=== PATIENT | male | born 1990 | race American Indian/Alaskan Native ===

== ENCOUNTER 2017-12-19 09:33 | Emergency (ER) | payer SELFPAY ==
[2017-12-19 09:43] VITALS: BP 150/97
--- NOTE | 2017-12-19 10:43 | Emergency Department Report ---
Chief Complaint: Urogenital-Male Stated Complaint: DISCHARGE Time Seen by Provider: 12/19/17 10:35 - HPI History of Present Illness: This is a 27-year-old -[place] male who presents with white penile discharge for 3 days. Patient admits to recent exposure to sexually transmitted diseases. He denies frequency, urgency, dysuria, pelvic or low back pain, testicular swelling or pain. Patient states he does not have insurance and his friend told him he can come to the emergency room to be treated for free. - ROS Review of Systems: complaining of penile discharge. This denies dysuria, frequency, urgency, testicular pain or swelling, or pelvic or low back pain. - Exam Vital Signs: Vital Signs 12/19/17 09:41 Temperature 97.8 F Pulse Rate 63 Respiratory 18 Rate Blood Pressure 150/97 O2 Sat by Pulse 100 Oximetry Physical Exam: Negative abdominal tenderness, CVA tenderness MSE screening note: Focused history and physical exam performed. Due to findings the following was ordered: Patient given handout to alternative treatment options. Patient also injected to follow-up with a [facility] or the health department for treatment. ED Disposition for MSE Condition: Stable
== END 2017-12-19 11:51 | disposition left against medical advice (07) ==
LOC: ED 09:33
DX: R36.9 Urethral discharge, unspecified (principal)
CPT/HCPCS: 99281

== ENCOUNTER 2017-12-22 16:49 | Emergency (ER) | payer SELFPAY ==
[2017-12-22 17:42] VITALS: BP 127/74
[2017-12-22 18:20] LABS: Bilirubin,Urine NEG (Negative); Blood,Urine MOD (Negative); Color,Urine Straw (Yellow); Protein,Urine <15 mg/dL mg/dL (Negative); Urobilinogen,Urine < 2.0 mg/dL (<2.0)
[2017-12-22] MEDS ORDERED: ZITHROMAX PO ONE (22:36)
[2017-12-22] MEDS ORDERED: ROCEPHIN IM ONE (22:36)
[2017-12-22] MEDS ORDERED: XYLOCAINE 1% MPF 5 mL INFILTRATI ONE (22:36)
--- NOTE | 2017-12-22 22:55 | Emergency Department Report ---
ED Male HPI - General Chief complaint: Urogenital-Male Stated complaint: CANT URINATE Time Seen by Provider: 12/22/17 22:35 Source: patient Mode of arrival: Ambulatory Limitations: No Limitations - History of Present Illness Initial comments: Patient is a 27-year-old -[place]ian male who presents for a STD yellow purulent penile discharge no fever no chills noticeable. Lymph nodes systems include dysuria frequency urgency no hematuria symptoms exacerbated by urinating and no sores open lesions or rashes MD Complaint: penile discharge, dysuria Onset/Timin -: days(s) Location: penis Radiation: none Severity: moderate Severity scale (0 -10): 4 Quality: burning Consistency: intermittent Improves with: none Worsens with: urination new sexual partner discharge, dysuria. denies: swelling, mass, rash, urinary retention, blood in urine, fever, nausea/vomiting, incontinence - Related Data Sexually active: Yes Previous Rx's Medication Instructions Recorded Last Taken Type Ciprofloxacin HCl [Cipro] 500 mg PO BID #14 tablet 12/22/17 Unknown Rx Doxycycline [Vibramycin CAP] 100 mg PO Q12HR #20 capsule 12/22/17 Unknown Rx Allergies Allergy/AdvReac Type Severity Reaction Status Date / Time No Known Allergies Allergy Verified 12/19/17 09:41 ED Review of Systems ROS: Stated complaint: CANT URINATE Other details as noted in HPI Constitutional: denies: chills, fever Eyes: denies: eye pain, eye discharge, vision change ENT: denies: ear pain, throat pain Respiratory: denies: cough, shortness of breath, wheezing Cardiovascular: denies: chest pain, palpitations Endocrine: no symptoms reported Gastrointestinal: denies: abdominal pain, nausea, diarrhea Genitourinary: urgency, dysuria, frequency, discharge. denies: hematuria, testicular pain Musculoskeletal: denies: back pain, joint swelling, arthralgia Skin: denies: rash, lesions Neurological: denies: headache, weakness, paresthesias Psychiatric: denies: anxiety, depression Hematological/Lymphatic: denies: easy bleeding, easy bruising ED Past Medical Hx - Past Medical History Previous Medical History?: No - Surgical History Past Surgical History?: No - Social History Smoking Status: Never Smoker Substance Use Type: Alcohol - Medications Home Medications: Home Medications Medication Instructions Recorded Confirmed Last Taken Type Ciprofloxacin HCl [Cipro] 500 mg PO BID #14 tablet 12/22/17 Unknown Rx Doxycycline [Vibramycin CAP] 100 mg PO Q12HR #20 capsule 12/22/17 Unknown Rx ED Physical Exam - General Limitations: No Limitations General appearance: alert, in no apparent distress - Head Head exam: Present: atraumatic, normocephalic - Eye Eye exam: Present: normal appearance - ENT ENT exam: Present: mucous membranes moist - Neck Neck exam: Present: normal inspection - Respiratory Respiratory exam: Present: normal lung sounds bilaterally. Absent: respiratory distress - Cardiovascular Cardiovascular Exam: Present: regular rate, normal rhythm. Absent: systolic murmur, diastolic murmur, rubs, gallop - GI/Abdominal GI/Abdominal exam: Present: soft, normal bowel sounds - Rectal Rectal exam: Present: deferred - exam: Present: normal inspection, urethral discharge (yellow green purulent) , circumcision. Absent: testicular tenderness, scrotal swelling, vertical testicular lie External exam: Present: normal external exam. Absent: erythema, swelling, lesions, lacerations, ecchymosis, bleeding - Extremities Exam Extremities exam: Present: normal inspection - Back Exam Back exam: Present: normal inspection - Neurological Exam Neurological exam: Present: alert, oriented X3 - Psychiatric Psychiatric exam: Present: normal affect, normal mood - Skin Skin exam: Present: warm, dry, intact, normal color. Absent: rash ED Course Vital Signs 12/22/17 17:39 Temperature 98.5 F Pulse Rate 76 Respiratory 16 Rate Blood Pressure 127/74 O2 Sat by Pulse 99 Oximetry ED Medical Decision Making - Lab Data Laboratory Tests 12/22/17 17:54 Urine Color Straw Urine Turbidity Clear Urine pH 7.0 Ur Specific [place] 1.001 L Urine Protein <15 mg/dl Urine Glucose (UA) Neg Urine Ketones Neg Urine Blood Mod Urine Nitrite Neg Urine Bilirubin Neg Urine Urobilinogen < 2.0 Ur Leukocyte Esterase Lg Urine WBC (Auto) 39.0 H Urine RBC (Auto) 1.0 U Epithel Cells (Auto) < 1.0 - Medical Decision Making Patient treated for STD and UTI will follow with PCP in 2-3 days follow with health department for HIV and HSV screening patient verbalized understanding and agreement with same Critical care attestation.: If time is entered above; I have spent that time in minutes in the direct care of this critically ill patient, excluding procedure time. ED Disposition Clinical Impression: STD (sexually transmitted disease) UTI (urinary tract infection) Qualifiers: Urinary tract infection type: acute cystitis Hematuria presence: without hematuria Qualified Code(s): N30.00 - Acute cystitis without hematuria Disposition: TO HOME OR SELFCARE Is pt being admited?: No Does the pt Need Aspirin: No Condition: Good Instructions: Sexually Transmitted Diseases (ED), Urinary Tract Infection in Men (ED) Additional Instructions: follow up with health department for hiv and hsv screening Prescriptions: Ciprofloxacin HCl [Cipro] 500 mg PO BID #14 tablet Doxycycline [Vibramycin CAP] 100 mg PO Q12HR #20 capsule Referrals: [facility] [Outside] - 3-5 Days Forms: Work/School Release Form(ED) Time of Disposition: 23:01
== END 2017-12-22 23:25 | disposition home or self-care (01) ==
LOC: ED 16:49
DX: N30.00 Acute cystitis without hematuria (principal); A64 Unspecified sexually transmitted disease
CPT/HCPCS: 81001; 96372; 99283; J0696

== ENCOUNTER 2018-06-18 12:10 | Emergency (ER) | payer SELFPAY ==
--- NOTE | 2018-06-18 12:41 | Emergency Department Report ---
Blank Doc - Documentation Documentation: This is a 27-year-old male that presents with left index finger pain. Stated had a splinter that he removed but still believes some is left. Denies any other complaints. UTD with tetanus as of 2018. This initial assessment diagnostic orders/clinical plan/treatment(s) is/are subject to change based on patient's health status, clinical progression and re- assessment by fellow clinical providers in the ED. Further treatment and workup at subsequent clinical providers discretion. Patient/guardians urged not to elope from ED s their condition may be serious if not clinically assessed and managed. Initial orders include: 1-Patient sent to [facility] for further evaluation and treatment 2- xray to r/o foreign body
[2018-06-18 12:42] VITALS: BP 118/60
--- NOTE | 2018-06-18 14:17 | Emergency Department Report ---
- General Chief Complaint: Skin/Abscess/Foreign Body Stated Complaint: LACERATION INDEX FINGER Time Seen by Provider: 06/18/18 12:39 Source: patient Mode of arrival: Ambulatory Limitations: No Limitations - History of Present Illness Initial Comments: This is a 27-year-old male nontoxic, well nourished in appearance, no acute signs of distress presents to the ED with c/o of left next finger palpation. Patient stated that last week a splinter has been removed and endorses that he has a small abrasion that is painful. She denies any swelling, fever, chills, nausea, vomiting, chest pain instructed to bear. Denies any other complaints. Denies any allergies. Is up-to-date with tetanus. -: week(s) (1) Extremity Location: Left: Hand Patient Tetanus UTD: Yes Context: accidental Associated Symptoms: pain. denies: loss of feeling/numbness, suspect foreign body present, unable to move injured part, weakness followed by dizziness, nausea/vomiting, fever - Related Data Previous Rx's Medication Instructions Recorded Last Taken Type Ciprofloxacin HCl [Cipro] 500 mg PO BID #14 tablet 12/22/17 Unknown Rx Doxycycline [Vibramycin CAP] 100 mg PO Q12HR #20 capsule 12/22/17 Unknown Rx Acetaminophen/Codeine [Tylenol 1 tab PO Q6H PRN #12 tab 06/18/18 Unknown Rx /Codeine # 3 tab] Ibuprofen [Motrin] 600 mg PO Q8H PRN #20 tablet 06/18/18 Unknown Rx Sulfamethoxazole/Trimethoprim 1 each PO BID #14 tablet 06/18/18 Unknown Rx [Bactrim DS TAB] Allergies Allergy/AdvReac Type Severity Reaction Status Date / Time No Known Allergies Allergy Verified 12/19/17 09:41 ED Review of Systems ROS: Stated complaint: LACERATION INDEX FINGER Other details as noted in HPI Constitutional: denies: chills, fever Eyes: denies: eye pain, eye discharge, vision change ENT: denies: ear pain, throat pain Respiratory: denies: cough, shortness of breath, wheezing Cardiovascular: denies: chest pain, palpitations Endocrine: no symptoms reported Gastrointestinal: denies: abdominal pain, nausea, diarrhea Genitourinary: denies: urgency, dysuria Musculoskeletal: denies: back pain, joint swelling, arthralgia Skin: denies: rash, lesions Neurological: denies: headache, weakness, paresthesias Psychiatric: denies: anxiety, depression Hematological/Lymphatic: denies: easy bleeding, easy bruising ED Past Medical Hx - Past Medical History Previous Medical History?: No - Surgical History Past Surgical History?: No - Social History Smoking Status: Current Every Day Smoker Substance Use Type: Marijuana - Medications Home Medications: Home Medications Medication Instructions Recorded Confirmed Last Taken Type Ciprofloxacin HCl [Cipro] 500 mg PO BID #14 tablet 12/22/17 Unknown Rx Doxycycline [Vibramycin CAP] 100 mg PO Q12HR #20 capsule 12/22/17 Unknown Rx Acetaminophen/Codeine [Tylenol 1 tab PO Q6H PRN #12 tab 06/18/18 Unknown Rx /Codeine # 3 tab] Ibuprofen [Motrin] 600 mg PO Q8H PRN #20 tablet 06/18/18 Unknown Rx Sulfamethoxazole/Trimethoprim 1 each PO BID #14 tablet 06/18/18 Unknown Rx [Bactrim DS TAB] ED Physical Exam - General Limitations: No Limitations General appearance: alert, in no apparent distress - Head Head exam: Present: atraumatic, normocephalic - Extremities Exam Extremities exam: Present: normal inspection, full ROM, tenderness, normal capillary refill. Absent: joint swelling - Expanded Upper Extremity Exam Left Hand Wrist exam: Present: normal inspection, full ROM, tenderness, abrasion. Absent: swelling, laceration, ecchymosis, deformity, crepidus, dislocation, erythema, amputation, nail avulsion, subungual hematoma Vascular: Present: vascular compromise, normal capillary refill - Back Exam Back exam: Present: normal inspection, full ROM - Neurological Exam Neurological exam: Present: alert, oriented X3 - Psychiatric Psychiatric exam: Present: normal affect, normal mood - Skin Skin exam: Present: warm, dry, intact, normal color. Absent: rash ED Course Vital Signs 06/18/18 12:40 Temperature 97.9 F Pulse Rate 95 H Respiratory 18 Rate Blood Pressure 118/60 O2 Sat by Pulse 99 Oximetry - Reevaluation(s) Reevaluation #1: 06/18/18 14:19 Patient is speaking in full sentences with no signs of distress noted. ED Medical Decision Making - Medical Decision Making This is a 27-year-old male that presents with open wound. Patient is stable and was examined by me. There is no induration, fluctuance. No signs of abscess formation. Xray obatned and reviewed by Gisela Land with no facture or foreign body noted. I will discharge patient with Bactrim. Patient was referred to Follow-up with a primary care doctor in 3-5 days or if symptoms worsen and continue return to emergency room as soon as possible. At time of discharge, the patient does not seem toxic or ill in appearance. No acute signs of distress noted. Patient agrees to discharge treatment plan of care. No further questions noted by the patient. Critical care attestation.: If time is entered above; I have spent that time in minutes in the direct care o f this critically ill patient, excluding procedure time. ED Disposition Clinical Impression: Abrasion of left index finger Qualifiers: Encounter type: initial encounter Qualified Code(s): S60.411A - Abrasion of left index finger, initial encounter Disposition: TO HOME OR SELFCARE Is pt being admited?: No Does the pt Need Aspirin: No Condition: Stable Instructions: Abrasion (ED) Additional Instructions: Follow-up with a primary care doctor in 3-5 days or if symptoms worsen and continue return to emergency room as soon as possible. Prescriptions: Acetaminophen/Codeine [Tylenol /Codeine # 3 tab] 1 tab PO Q6H PRN #12 tab PRN Reason: Pain , Severe (7-10) Ibuprofen [Motrin] 600 mg PO Q8H PRN #20 tablet PRN Reason: Pain Sulfamethoxazole/Trimethoprim [Bactrim DS TAB] 1 each PO BID #14 tablet Referrals: RAJINDER LOMAX MD [Primary Care Provider] - 3-5 Days PRIMARY MD ALBA [Referring] - 3-5 Days JINA BELL MD [Staff Physician] - 3-5 Days [facility] [Outside] - 3-5 Days Forms: Work/School Release Form(ED)
--- NOTE | 2018-06-18 14:52 | XRay Report ---
LEFT FINGER RADIOGRAPHS INDICATION: Left finger pain with open wound. Evaluate for foreign body. COMPARISON: None similar at this institution. FINDINGS: An AP view of the left hand with oblique and lateral projections of the index finger demonstrate intact bony articulation and appearance. No definite radiopaque foreign body. Slight soft tissue swelling/irregularity along the index finger proximally questioned on the oblique view. CONCLUSION: No acute left hand bony abnormality with questionable index finger soft tissue injury, as described. Please correlate. Thank you for the opportunity to participate in this patient's care.
== END 2018-06-18 14:38 | disposition home or self-care (01) ==
LOC: ED 12:10
DX: S60.411A Abrasion of left index finger, initial encounter (principal); F17.200 Nicotine dependence, unspecified, uncomplicated; W45.8XXA Other foreign body or object entering through skin, initial encounter; Y93.89 Activity, other specified; Y92.69 Other specified industrial and construction area as the place of occurrence of the external cause; Y99.8 Other external cause status
CPT/HCPCS: 99283

== ENCOUNTER 2019-02-04 21:27 | Emergency (ER) | payer OTHER ==
[2019-02-04 22:40] VITALS: BP 132/67
--- NOTE | 2019-02-04 23:47 | Emergency Department Report ---
ED General Adult HPI - General Chief complaint: Extremity Injury, Upper Stated complaint: PAIN IN BACK AND SHOULDER Source: patient Mode of arrival: Ambulatory Limitations: No Limitations - History of Present Illness Initial comments: Patient is a 28-year-old -[place] male with no past medical history who presents to the ED with Gan of acute onset persistent severe nontraumatic right shoulder pain after heavy lifting at work for the last 1 month. Patient denies fall, traumatic injury, numbness and tingling overnight and right hands, neck pain, back pain, chest pain, shortness of breath, dizziness, headache, cough or change in vision. MD Complaint: right shoulder -: month(s) (1) Location: upper extremity (right shoulder) Radiation: non-radiation Severity scale (0 -10): 8 Quality: aching, sharp, constant Consistency: constant Improves with: none Worsens with: none Associated Symptoms: denies other symptoms. denies: confusion, chest pain, cough, diaphoresis, fever/chills, headaches, loss of appetite, malaise, nausea/vomiting, shortness of breath, syncope Treatments Prior to Arrival: none - Related Data Previous Rx's Medication Instructions Recorded Last Taken Type Ciprofloxacin HCl [Cipro] 500 mg PO BID #14 tablet 12/22/17 Unknown Rx DOXYCYCLINE Hyclate [Vibramycin 100 mg PO Q12HR #20 capsule 12/22/17 Unknown Rx CAP] Acetaminophen/Codeine [Tylenol 1 tab PO Q6H PRN #12 tab 06/18/18 Unknown Rx /Codeine # 3 tab] Sulfamethoxazole/Trimethoprim 1 each PO BID #14 tablet 06/18/18 Unknown Rx [Bactrim DS TAB] Cyclobenzaprine [Flexeril] 10 mg PO Q8H PRN #15 tablet 02/04/19 Unknown Rx Ibuprofen [Motrin 600 MG tab] 600 mg PO Q8H PRN #20 tablet 02/04/19 Unknown Rx Allergies Allergy/AdvReac Type Severity Reaction Status Date / Time No Known Allergies Allergy Verified 12/19/17 09:41 ED Review of Systems ROS: Stated complaint: PAIN IN BACK AND SHOULDER Other details as noted in HPI Constitutional: denies: chills, fever Eyes: denies: eye pain, eye discharge, vision change ENT: denies: ear pain, throat pain Respiratory: denies: cough, shortness of breath, wheezing Cardiovascular: denies: chest pain, palpitations Endocrine: no symptoms reported Gastrointestinal: denies: abdominal pain, nausea, diarrhea Genitourinary: denies: urgency, dysuria Musculoskeletal: arthralgia (right shoulder), myalgia. denies: back pain, joint swelling Skin: denies: rash, lesions Neurological: denies: headache, weakness, paresthesias Psychiatric: denies: anxiety, depression Hematological/Lymphatic: denies: easy bleeding, easy bruising ED Past Medical Hx - Past Medical History Previous Medical History?: No Hx Hypertension: No Hx CVA: No Hx Heart Attack/AMI: No Hx Congestive Heart Failure: No Hx Diabetes: No Hx Deep Vein Thrombosis: No Hx Pulmonary Embolism: No Hx GERD: No Hx Liver Disease: No Hx Renal Disease: No Hx of Cancer: No Hx Sickle Cell Disease: No Hx Arthritis: No Hx Headaches / Migraines: No Hx Seizures: No Hx Kidney Stones: No Hx Psychiatric Treatment: No Hx Asthma: No Hx COPD: No Hx Tuberculosis: No Hx Dementia: No Hx HIV: No - Surgical History Past Surgical History?: No Hx Coronary Stent: No Hx Open Heart Surgery: No Hx Pacemaker: No Hx Internal Defibrillator: No Hx Cholecystectomy: No Hx Appendectomy: No Hx Breast Surgery: No - Social History Smoking Status: Never Smoker Substance Use Type: None - Medications Home Medications: Home Medications Medication Instructions Recorded Confirmed Last Taken Type Ciprofloxacin HCl [Cipro] 500 mg PO BID #14 tablet 12/22/17 Unknown Rx DOXYCYCLINE Hyclate [Vibramycin 100 mg PO Q12HR #20 capsule 12/22/17 Unknown Rx CAP] Acetaminophen/Codeine [Tylenol 1 tab PO Q6H PRN #12 tab 06/18/18 Unknown Rx /Codeine # 3 tab] Sulfamethoxazole/Trimethoprim 1 each PO BID #14 tablet 06/18/18 Unknown Rx [Bactrim DS TAB] Cyclobenzaprine [Flexeril] 10 mg PO Q8H PRN #15 tablet 02/04/19 Unknown Rx Ibuprofen [Motrin 600 MG tab] 600 mg PO Q8H PRN #20 tablet 02/04/19 Unknown Rx ED Physical Exam - General Limitations: No Limitations General appearance: alert, in no apparent distress - Head Head exam: Present: atraumatic, normocephalic, normal inspection - Eye Eye exam: Present: normal appearance, PERRL, EOMI - ENT ENT exam: Present: normal exam, normal orophraynx, mucous membranes moist, TM's normal bilaterally, normal external ear exam - Neck Neck exam: Present: normal inspection, full ROM - Respiratory Respiratory exam: Present: normal lung sounds bilaterally. Absent: respiratory distress, chest wall tenderness, accessory muscle use, decreased breath sounds - Cardiovascular Cardiovascular Exam: Present: regular rate, normal rhythm, normal heart sounds. Absent: systolic murmur, diastolic murmur, rubs, gallop - GI/Abdominal GI/Abdominal exam: Present: soft, normal bowel sounds. Absent: tenderness, guarding, rebound, hyperactive bowel sounds, hypoactive bowel sounds, organomegaly - Rectal Rectal exam: Present: deferred - Extremities Exam Extremities exam: Present: normal inspection, full ROM, tenderness (Palpable ri ght shoulder tenderness), normal capillary refill - Back Exam Back exam: Present: normal inspection, full ROM. Absent: muscle spasm, paraspinal tenderness - Neurological Exam Neurological exam: Present: alert, oriented X3, CN II-XII intact, normal gait, reflexes normal - Psychiatric Psychiatric exam: Present: normal affect, normal mood - Skin Skin exam: Present: warm, dry, intact, normal color. Absent: rash ED Course Vital Signs 02/04/19 22:38 Temperature 98.2 F Pulse Rate 81 Respiratory 18 Rate Blood Pressure 132/67 O2 Sat by Pulse 100 Oximetry - Reevaluation(s) Reevaluation #1: 02/04/19 23:48 This is a 28-year-old male who presented to the ED with persistent right shoulder pain for the last 1 month after heavy lifting. In the ED, patient is alert and oriented 3 and is not in distress. Patient was discharged home on pain medications and muscle relaxants based on the fact that it was not traumatic injury to the right shoulder except heavy lifting. Patient symptoms are likely due to muscle strain or right shoulder sprain. Patient was advised to follow-up with his primary care physician in 7-10 days for reevaluation or return to the ED immediately if symptoms get worse. ED Medical Decision Making - Medical Decision Making This is a 28-year-old male who presented to the ED with persistent right shoulder pain for the last 1 month after heavy lifting. In the ED, patient is alert and oriented 3 and is not in distress. Patient was discharged home on pain medications and muscle relaxants based on the fact that it was not traumatic injury to the right shoulder except heavy lifting. Patient symptoms are likely due to muscle strain or right shoulder sprain. Patient was advised to follow-up with his primary care physician in 7-10 days for reevaluation or return to the ED immediately if symptoms get worse. - Differential Diagnosis right shoulder sprain; muscle strain of right shoulder Critical care attestation.: If time is entered above; I have spent that time in minutes in the direct care of this critically ill patient, excluding procedure time. ED Disposition Clinical Impression: Muscle strain of right shoulder Qualifiers: Encounter type: initial encounter Qualified Code(s): S46.911A - Strain of unspecified muscle, fascia and tendon at shoulder and upper arm level, right arm, initial encounter Sprain of right shoulder Qualifiers: Encounter type: initial encounter Shoulder sprain type: unspecified sprain Qualified Code(s): S43.401A - Unspecified sprain of right shoulder joint, initial encounter Disposition: TO HOME OR SELFCARE Is pt being admited?: No Does the pt Need Aspirin: No Condition: Stable Instructions: Muscle Strain (ED), Shoulder Sprain (ED) Additional Instructions: Take medication with food, drink plenty of fluids and follow-up with your primary care physician in 7-10 days for reevaluation. Return to the ED immediately if symptoms get worse. Prescriptions: Cyclobenzaprine [Flexeril] 10 mg PO Q8H PRN #15 tablet PRN Reason: Muscle Spasm Ibuprofen [Motrin 600 MG tab] 600 mg PO Q8H PRN #20 tablet PRN Reason: Pain Referrals: PRIMARY CARE, [Primary Care Provider] - 3-5 Days Time of Disposition: 23:43 Print Language: BRAZILIAN
== END 2019-02-05 00:07 | disposition home or self-care (01) ==
LOC: ED 21:27
DX: S43.401A Unspecified sprain of right shoulder joint, initial encounter (principal); S46.911A Strain of unspecified muscle, fascia and tendon at shoulder and upper arm level, right arm, initial encounter; X50.0XXA Overexertion from strenuous movement or load, initial encounter; Y93.89 Activity, other specified; Y92.89 Other specified places as the place of occurrence of the external cause; Y99.8 Other external cause status
CPT/HCPCS: 99282